=== PATIENT | male | born 1980 | race Caucasian/White ===

== ENCOUNTER → 2020-12-14 | Outpatient (CLI) | payer BC ==
[~2020-12-14] MED LIST: ATOR20TA PO; DEXT10CA10 PO; HYDR-2765 PO; LEXAPRO20 MG PO
== END ==
LOC: LAB 15:05
PROVIDERS: ATTEND Orthopaedic Surgery
DX: Z01.812 Encounter for preprocedural laboratory examination (principal); Z20.822 Contact with and (suspected) exposure to COVID-19; G56.22 Lesion of ulnar nerve, left upper limb
CPT/HCPCS: U0003

== ENCOUNTER 2020-12-17 06:08 | Day surgery (SDC) | payer BC ==
[~2020-12-17] VITALS: Ht 180.3 cm; Wt 116.6 kg
[~2020-12-17 06:08] MED LIST changes: -HYDR-2765 PO; +HYDROmorphone 2 MG/ML VIAL IVP PRN; +IV RINGERS,LACTATED 1000ML 1,000 ML IV SCH; +MORPHINE SULFATE 2 MG/ML VIAL. IVP PRN; +PROCHLORPERAZINE 10 MG/2 ML VIAL. IVP PRN; +fentaNYL PF VIAL 100 MCG/2 ML VIAL IVP PRN
[2020-12-17] MEDS ORDERED: BUPIVACAINE MPF 0.25% 30 ML VIAL. ONE (06:55)
[2020-12-17] MEDS ORDERED: PROPOFOL 10 MG/ML (20ML) VIAL. IV ONE (07:11)
[2020-12-17] MEDS ORDERED: DEXAMETHASONE SOD PHOS 4 MG/ML VIAL ONE (07:11)
[2020-12-17] MEDS ORDERED: ONDANSETRON PF 4 MG/2 ML VIAL. ONE (07:11)
[2020-12-17] MEDS ORDERED: LIDOCAINE 2% PF 5 ML VIAL. ONE (07:11)
[2020-12-17] MEDS ORDERED: MIDAZOLAM HCL/PF 2 MG/2 ML VIAL. ONE (07:13)
[2020-12-17] MEDS ORDERED: HYDR-2765 PO (07:37)
[2020-12-17] MEDS ORDERED: FAMOTIDINE 20 MG/2 ML VIAL ONE (07:38)
[2020-12-17] MEDS ORDERED: fentaNYL PF VIAL 100 MCG/2 ML VIAL ONE ×2 (07:39→08:48)
--- NOTE | 2020-12-17 07:39 | DISCH ---
DISCHARGE INSTRUCTIONS Condition on Discharge Condition on Discharge: Stable Activity After Discharge Activity Instructions for Disc: Other, see below (Fine motor use with left arm with gentle grasping silverware, write type etc., keep elbow moving to allow nerve to glide and prevent scarring) Weight Bearing Status after Di: As tolerated Diet after Discharge Diet after Discharge: Regular Wound Incision Care Wound/Incision Care: Change dressing (May remove dressing in 3 days may then shower, avoid any significant pressure on the area and place a small dressing if necessary report any redness drainage) Contacting the after DC Call your doctor for: Concerns you may have Follow-Up Follow up with: Dr. Guerrero 10 days DANIELITO GUERRERO MD Dec 17, 2020 07:39
[2020-12-17] MEDS ORDERED: SEVOFLURANE 31 TO 60 MINUTES. IH ONE (07:57)
[2020-12-17] MEDS: fentaNYL PF VIAL 100 MCG/2 ML VIAL IVP PRN ×2 (08:50→09:11)
[2020-12-17] MEDS ORDERED: HYDROcodone/APAP 5/325MG 1 TAB TABLET PO ONE (09:00)
[2020-12-17 09:31] VITALS: BP 120/76
--- NOTE | 2020-12-17 10:18 | PDOC4 ---
Operative Note Operative Note Date of surgery: 12/17/2020 Preoperative diagnosis: Left cubital tunnel syndrome Postoperative diagnosis: Same with moderate to severe ulnar nerve compression Operative procedure: Left cubital tunnel release in situ Surgeon: Cesar Assist: Rivas angelo Anesthesia: General Estimated blood loss: 15 cc Complications: None Operative indications: Please see my preoperative orthopedic clinic note for detailed operative indications and note that I had covered with him the EMG findings that correlate with his clinical paresthesia in the median nerve distribution. We talked about the rationale for release of the nerve to take the pressure off the nerve where it is compressed and allow the body to heal it. There is a possibility of additional nerve or blood vessel damage bleeding complications infection and a possibility that the nerve may not come back completely even though the pressure is taken off of it. He also discussed a concern that he sometimes got a muscle spasm type activity in the left index finger that would pull the finger down a bit but it did not trigger or lock. Otherwise, all his questions were answered he wishes to proceed with surgical evaluation and treatment Operative text: Patient was identified procedure verified patient placed in the supine position on operating table. After adequate amounts of general anesthesia were administered the left upper extremity was prepped and draped in standard sterile fashion with an upper arm tourniquet. After timeout was performed patient procedure identified and verified the left upper extremity was exsanguinated by Esmarch bandage tourniquet inflated to 250 mmHg. A curvilinear incision was made over the medial elbow dissection carried out down to the cubital tunnel which was carefully unroofed and the cubital tunnel released from the intermuscular septum proximally through the cubital tunnel itself and released to the penetration into the flexor pronator musculature. He was noted to have moderate severe compression in the area of the cubital tunnel itself which was well released and there was no evidence of subluxation after release. Bleeding points were controlled by bipolar electrocautery thorough irrigation carried out normal saline solution subcutaneous closure with buried Vicryl suture skin closure with subcuticular suture sterile soft dressings were applied fingers were noted to be warm pink following deflation of the tourniquet patient was returned to recovery room in stable condition having tolerated procedure well. Rivas angelo was present for the procedure assisted in patient positioning draping prepping retraction closure and dressings DANIELITO MOISE MD Dec 17, 2020 10:18
== END 2020-12-17 10:04 | disposition home or self-care (01) ==
LOC: SURG 06:08
PROVIDERS: ATTEND Orthopaedic Surgery
DX: G56.22 Lesion of ulnar nerve, left upper limb (principal); I10 Essential (primary) hypertension; E78.00 Pure hypercholesterolemia, unspecified; F41.9 Anxiety disorder, unspecified; Z87.891 Personal history of nicotine dependence; Z72.89 Other problems related to lifestyle; Z98.890 Other specified postprocedural states; Z88.8 Allergy status to other drugs, medicaments and biological substances
CPT/HCPCS: 64718; J0690; J1100; J2250; J2405; J2704; J3010; J3490